=== PATIENT | female | born 1965 | race African-American/Black ===

== ENCOUNTER 2020-05-07 20:18 | Emergency (ER) | payer SELFPAY ==
[2020-05-07] MEDS ORDERED: traMADol 50 MG Tab PO ONE (21:30)
[2020-05-07] MEDS ORDERED: Ibuprofen 600 MG Tab PO ONE (21:30)
--- NOTE | 2020-05-07 22:01 | CR ---
Left knee: AP, lateral and sunrise patellar views of the left knee were obtained. Medial and lateral joint compartments are maintained in height. Very minimal osteophyte off the superior patella is seen. Patellofemoral joint appears within normal limits. Joint effusion is seen. Impression: 1. Joint effusion. 2. Minimal osteophyte off the superior patella. Diagnostic code #3 Study was dictated in MDT
--- NOTE | 2020-05-07 22:22 | EDM.PDOC ---
ED HPI GENERAL MEDICAL PROBLEM - General Chief Complaint: Lower Extremity Injury/Pain Stated Complaint: [facility] Time Seen by Provider: 05/07/20 21:24 - History of Present Illness INITIAL COMMENTS - FREE TEXT/NARRATIVE: HISTORY AND PHYSICAL: History of present illness: This is a 52-year-old female with history significant for hypertension who presents ER today complaining of pain to her left knee that started approximately 2 to 3 hours ago. Patient reports that she was at the [email or web address] park and was jumping on the trampoline when she fell down and feels like her left knee buckled underneath her. Patient reports that her left knee inverted and flexed prior to her landing on it. Patient reports that she has had severe pain with any weightbearing. Patient reports that she has no pain or discomfort in her ankle or hips or any other joints. Patient reports that her mobility to her ankle and hips are not limited but decreased range of motion to her left knee. Patient reports that she noticed immediate swelling underneath her left patella. Patient has a history of hypertension. Patient denies any diabetes, liver, lung, kidney problems. Patient denies any tobacco alcohol or drugs. Patient is allergic to IV dye, penicillin, seasonal allergies. Review of systems: As per history of present illness and below otherwise all systems reviewed and negative. Past medical history: As per history of present illness and as reviewed below otherwise noncontributory. Surgical history: As per history of present illness and as reviewed below otherwise noncontributory. Social history: No reported history of drug or alcohol abuse. Family history: As per history of present illness and as reviewed below otherwise noncontributory. Physical exam: Constitutional: Patient is oriented to person, place, and time. Appears well- developed and well-nourished. No distress. HEENT: Moist mucous membranes Head: Normocephalic and atraumatic Eyes: Right eye exhibits no discharge. Left eye exhibits no discharge. No scleral icterus Neck: Normal range of motion. No tracheal deviation present. Cardiovascular: Normal rate and regular rhythm. Pulmonary: Effort normal, no respiratory distress. Abdominal: No distention Musculoskeletal: Normal range of motion Neurologic: Alert and oriented to person, place and time. Skin: [place], warm and dry. Psychiatric: Normal mood and affect. Behavior is normal. Judgment and thought content normal. Nursing note and vital signs have been reviewed Patient CR physical exam is significant for tenderness to palpation to the popliteal fossa of her left lower extremity. Patient has a knee effusion. Patient's patella is ballotable. Patient has tenderness with medial stressors. Patient has no ligamentous laxity but exam is limited secondary to pain and discomfort. Diagnostics: X-ray left knee reveals no acute fracture or dislocation. Effusion identified within the joint. Therapeutics: Knee immobilizer will be provided for immobilization and assisting with healing. Crutches will be provided to assist with ambulation. Ibuprofen and Ultram for pain Assessment and plan: This is a 54-year-old female who presents to the ER today secondary to traumatic injury to her left knee. Patient's x-ray reveals no acute fracture but does have a knee effusion. Patient's exam is consistent with likely ligamentous injury versus meniscal injury. Patient was placed in a knee immobilizer, crutches. Patient will be discharged with ibuprofen and Ultram. Reassessment at the time of disposition demonstrates that the patient is in no a cute distress. The patient has remained stable throughout the entire ED visit and is without objective evidence for acute process requiring urgent intervention or hospitalization. The patient is stable for discharge, counseling is provided as documented above, discussed symptomatic treatment and specific conditions for return. I have spoken with the patient/caregive and discussed todays findings, in addition to providing specific details for the plan of care. Questions are answered and there is agreement with the plan. L knee Pain Score (Numeric/FACES): 6 - Related Data Allergies Allergy/AdvReac Type Severity Reaction Status Date / Time Iodinated Contrast Media Allergy Airway Verified 05/07/20 21:23 Tightness Penicillins Allergy Cough Verified 05/07/20 21:23 Home Meds: Home Meds Ibuprofen 600 mg PO Q6HR PRN #30 tablet 05/07/20 [Rx] Losartan [Cozaar] 100 mg PO DAILY 05/07/20 [History] NIFEdipine [Procardia Xl] 90 mg PO DAILY 05/07/20 [History] Waterpill 05/07/20 [History] traMADol [Ultram] 50 mg PO Q6H PRN #12 tab 05/07/20 [Rx] Past Medical History HEENT History: Reports: Impaired Vision, Other (See Below) Other HEENT History: wears glasses Cardiovascular History: Reports: Hypertension Respiratory History: Reports: Asthma [employer]PERATOR History: Reports: Musculoskeletal History: Reports: Other (See Below) Other Musculoskeletal History: celestino Rogers miniscus - Past Surgical History HEENT Surgical History: Reports: None Cardiovascular Surgical History: Reports: None Respiratory Surgical History: Reports: None Musculoskeletal Surgical History: Reports: Other (See Below) Other Musculoskeletal Surgeries/Procedures:: laminectomy Social & Family History - Family History Family Medical History: Noncontributory - Tobacco Use Smoking Status *Q: Never Smoker Second Hand Smoke Exposure: No - Caffeine Use Caffeine Use: Reports: None - Recreational Drug Use Recreational Drug Use: No Review of Systems - Review of Systems Review Of Systems: Comprehensive ROS is negative, except as noted in HPI. ED EXAM, GENERAL - Physical Exam Exam: See Below Course - Vital Signs Last Recorded V/S: Last Vital Signs Temp 97.5 F 05/07/20 21:20 Pulse 59 L 05/07/20 22:10 Resp 17 05/07/20 22:10 BP 132/86 05/07/20 22:10 Pulse Ox 96 05/07/20 22:10 - Orders/Labs/Meds Orders: Active Orders 24 hr Category Date Time Status Communication Order [RC] STAT Care 05/07/20 22:14 Active Meds: Medications Discontinued Medications Generic Name Dose Route Start Last Admin Trade Name Talhaq PRN Reason Stop Dose Admin Ibuprofen 600 mg 05/07/20 21:30 05/07/20 22:09 Motrin PO 05/07/20 21:31 600 mg ONETIME ONE Administration Tramadol HCl 50 mg 05/07/20 21:30 05/07/20 22:09 Ultram PO 05/07/20 21:31 50 mg ONETIME ONE Administration Departure - Departure Time of Disposition: 22:24 Disposition: Home, Self-Care 01 Condition: Good Clinical Impression: Sprain of knee, Injury of knee, ligament - Discharge Information Instructions: Crutch Use, Adult, [id number], Knee Sprain, Adult, [id number], How to Use a Knee Immobilizer, [id number] Referrals: PCP,Not In Area [Primary Care Provider] - Additional Instructions: You were seen and evaluated in the ER today secondary to your left knee injury. You likely have a ligamentous strain or injury to your knee. You will be placed in the immobilizer and crutches to assist with rapid healing. Please make an appointment to see your orthopedic doctor in the next 1 to 2 weeks. [facility] Professional [address], [address] [place] [address] The following information is given to patients seen in the emergency department who are being discharged to home. This information is to outline your options for follow-up care. We provide all patients seen in our emergency department with a follow-up referral. The need for follow-up, as well as the timing and circumstances, are variable depending upon the specifics of your emergency department visit. If you don't have a primary care physician on staff, we will provide you with a referral. We always advise you to contact your personal physician following an emergency department visit to inform them of the circumstance of the visit and for follow-up with them and/or the need for any referrals to a consulting specialist. The emergency department will also refer you to a specialist when appropriate. This referral assures that you have the opportunity for follow-up care with a specialist. All of these measure are taken in an effort to provide you with optimal care, which includes your follow-up. Under all circumstances we always encourage you to contact your private physician who remains a resource for coordinating your care. When calling for follow-up care, please make the office aware that this follow-up is from your recent emergency room visit. If for any reason you are refused follow-up, please contact the Emergency Department at and asked to speak to the emergency department charge nurse. Sepsis Event Note (ED) - Evaluation Sepsis Screening Result: No Definite Risk - Focused Exam Vital Signs: Vital Signs Temp Pulse Resp BP Pulse Ox 05/07/20 22:10 59 L 17 132/86 96 05/07/20 21:20 97.5 F 68 17 154/86 H 96 - My Orders Last 24 Hours: My Active Orders 05/07/20 22:14 Communication Order [RC] STAT - Assessment/Plan Last 24 Hours: My Active Orders 05/07/20 22:14 Communication Order [RC] STAT
== END 2020-05-07 23:05 | disposition home or self-care (01) ==
LOC: MW.ED 20:18
DX: S83.92XA Sprain of unspecified site of left knee, initial encounter (principal); I10 Essential (primary) hypertension; Z91.041 Radiographic dye allergy status; Z88.0 Allergy status to penicillin; Z79.899 Other long term (current) drug therapy; W17.89XA Other fall from one level to another, initial encounter; Y93.44 Activity, trampolining; Y92.29 Other specified public building as the place of occurrence of the external cause
CPT/HCPCS: 73562; 99283; A9270